=== PATIENT | female | born 1965 | race American Indian/Alaskan Native ===

== ENCOUNTER 2018-02-10 17:20 | Emergency (ER) | payer SELFPAY ==
[2018-02-10] MEDS ORDERED: MOTRIN PO ONE (21:02)
[2018-02-10 21:04] VITALS: BP 133/90
--- NOTE | 2018-02-11 00:48 | Emergency Department Report ---
ED ENT HPI - General Chief complaint: Dental/Oral Stated complaint: HEAD PAIN/TOOTHACHE Time Seen by Provider: 02/11/18 00:43 Source: patient Mode of arrival: Ambulatory Limitations: No Limitations - History of Present Illness Initial comments: 52-year-old [place] female comes in complaining of right side 8 and face pain. Patient states that she thinks she has a toothache. Patient states that this is started Tuesday and progressively gotten worse. Patient reports she does have an appointment with the dentist on February 27. History of a stroke in 2008. She reports that the Tylenol that was given to her triage has not helped with her pain. MD complaint: tooth pain -: days(s) (4) Location: tooth # (2) Severity scale (0 -10): 10 Quality: stabbing, aching Consistency: constant Improves with: none Worsens with: eating Associated Symptoms: gum swelling, toothache - Related Data Previous Rx's Medication Instructions Recorded Last Taken Type Aspirin [Aspirin TAB] 325 mg PO QDAY #30 tablet 12/25/13 Unknown Rx Simvastatin [Zocor TAB] 20 mg PO QHS #30 tablet 12/25/13 Unknown Rx Acyclovir [Zovirax Cap] 200 mg PO 5XD #35 cap 02/09/14 Unknown Rx HYDROcodone/APAP 7.5-325 [[place] 1 each PO Q6HR PRN #20 tablet 02/09/14 Unknown Rx 7.5/325 mg] Clindamycin [Clindamycin CAP] 300 mg PO Q8H 10 Days #30 cap 02/11/18 Unknown Rx Ibuprofen [Motrin 600 MG tab] 600 mg PO Q8H PRN #30 tablet 02/11/18 Unknown Rx traMADol [Ultram 50 MG tab] 50 mg PO Q6HR PRN #12 tablet 02/11/18 Unknown Rx Allergies Allergy/AdvReac Type Severity Reaction Status Date / Time Penicillins Allergy Hives Verified 12/24/13 08:58 ED Dental HPI - General Chief complaint: Dental/Oral Stated complaint: HEAD PAIN/TOOTHACHE Time Seen by Provider: 02/11/18 00:43 Source: patient Mode of arrival: Ambulatory Limitations: No Limitations - Related Data Previous Rx's Medication Instructions Recorded Last Taken Type Aspirin [Aspirin TAB] 325 mg PO QDAY #30 tablet 12/25/13 Unknown Rx Simvastatin [Zocor TAB] 20 mg PO QHS #30 tablet 12/25/13 Unknown Rx Acyclovir [Zovirax Cap] 200 mg PO 5XD #35 cap 02/09/14 Unknown Rx HYDROcodone/APAP 7.5-325 [[place] 1 each PO Q6HR PRN #20 tablet 02/09/14 Unknown Rx 7.5/325 mg] Clindamycin [Clindamycin CAP] 300 mg PO Q8H 10 Days #30 cap 02/11/18 Unknown Rx Ibuprofen [Motrin 600 MG tab] 600 mg PO Q8H PRN #30 tablet 02/11/18 Unknown Rx traMADol [Ultram 50 MG tab] 50 mg PO Q6HR PRN #12 tablet 02/11/18 Unknown Rx Allergies Allergy/AdvReac Type Severity Reaction Status Date / Time Penicillins Allergy Hives Verified 12/24/13 08:58 ED Review of Systems ROS: Stated complaint: HEAD PAIN/TOOTHACHE Other details as noted in HPI Constitutional: denies: chills, fever Eyes: denies: eye pain, eye discharge, vision change ENT: dental pain Respiratory: denies: cough, shortness of breath, wheezing Cardiovascular: as per HPI Endocrine: no symptoms reported ED Past Medical Hx - Past Medical History Hx CVA: Yes (2009 left side) - Surgical History Additional Surgical History: - Social History Smoking Status: Former Smoker Substance Use Type: None - Medications Home Medications: Home Medications Medication Instructions Recorded Confirmed Last Taken Type Aspirin [Aspirin TAB] 325 mg PO QDAY #30 tablet 12/25/13 Unknown Rx Simvastatin [Zocor TAB] 20 mg PO QHS #30 tablet 12/25/13 Unknown Rx Acyclovir [Zovirax Cap] 200 mg PO 5XD #35 cap 02/09/14 Unknown Rx HYDROcodone/APAP 7.5-325 [[place] 1 each PO Q6HR PRN #20 tablet 02/09/14 Unknown Rx 7.5/325 mg] Clindamycin [Clindamycin CAP] 300 mg PO Q8H 10 Days #30 cap 02/11/18 Unknown Rx Ibuprofen [Motrin 600 MG tab] 600 mg PO Q8H PRN #30 tablet 02/11/18 Unknown Rx traMADol [Ultram 50 MG tab] 50 mg PO Q6HR PRN #12 tablet 02/11/18 Unknown Rx ED Physical Exam - General Limitations: No Limitations General appearance: alert, in no apparent distress - Head Head exam: Present: atraumatic, normocephalic - Eye Eye exam: Present: EOMI - ENT ENT exam: Present: other (swelling noted to the right cheek) - Expanded ENT Exam Expanded Teeth exam: Present: dental tenderness # (2), gingival enlargement Throat exam: Positive: normal inspection - Neck Neck exam: Present: normal inspection ED Course Vital Signs 02/10/18 02/10/18 17:36 21:03 Temperature 98.8 F Pulse Rate 107 H 81 Respiratory 16 18 Rate Blood Pressure 144/95 Blood Pressure 133/90 [Left] O2 Sat by Pulse 100 100 Oximetry ED Medical Decision Making - Medical Decision Making Patient has been evaluated by this provider fast track. I will place patient on clindamycin 300 mg 3 times a day or 10 days. Please patient on ibuprofen as well as a few tramadol pain management. Patient is to keep her appointment with her dentist on 02/27/2018. Critical care attestation.: If time is entered above; I have spent that time in minutes in the direct care of this critically ill patient, excluding procedure time. ED Disposition Clinical Impression: Dental abscess Disposition: DC-01 TO HOME OR SELFCARE Is pt being admited?: No Does the pt Need Aspirin: No Condition: Stable Instructions: Dental Abscess (ED) Additional Instructions: Complete antibiotics as prescribed. Take pain medication as needed. Please keep your appointment with her dentist. Prescriptions: Clindamycin [Clindamycin CAP] 300 mg PO Q8H 10 Days #30 cap Ibuprofen [Motrin 600 MG tab] 600 mg PO Q8H PRN #30 tablet PRN Reason: Pain traMADol [Ultram 50 MG tab] 50 mg PO Q6HR PRN #12 tablet PRN Reason: Pain Referrals: PRIMARY CARE, [Primary Care Provider] - 3-5 Days Forms: Work/School Release Form(ED)
== END 2018-02-11 01:14 | disposition home or self-care (01) ==
LOC: ED 17:20
DX: K04.7 Periapical abscess without sinus (principal); Z88.0 Allergy status to penicillin; Z87.891 Personal history of nicotine dependence; Z86.73 Personal history of transient ischemic attack (TIA), and cerebral infarction without residual deficits
CPT/HCPCS: 99282

== ENCOUNTER 2019-06-27 13:07 | Emergency (ER) | payer SELFPAY ==
[2019-06-27 13:28] VITALS: BP 175/99
--- NOTE | 2019-06-27 13:37 | Emergency Department Report ---
- General Chief complaint: Skin/Abscess/Foreign Body Stated complaint: POSS SPIDER BITE Time Seen by Provider: 06/27/19 13:31 Source: patient Mode of arrival: Ambulatory Limitations: No Limitations - History of Present Illness Initial comments: This is a 53-year-old female nontoxic well in appearance with no signs of distress presents to the ED with complaint of left thigh redness and pain. Stated is not sure what bite him. Patient denies any swelling, pus, or drainage. Patient denies any other symptoms. Denies any fever, chills, headache, nausea, vomiting, chest pain or SOB. Denies any other complaints. Allergies include PCN. MD complaint: insect bite/sting -: days(s) Location: LLE Severity: mild Severity scale (0 -10): 8 Quality: aching Consistency: constant Improves with: none Worsens with: none Associated symptoms: denies other symptoms - Related Data Previous Rx's Medication Instructions Recorded Last Taken Type Aspirin 325 mg PO QDAY #30 tablet 12/25/13 Unknown Rx Simvastatin (Nf) [Zocor TAB] 20 mg PO QHS #30 tablet 12/25/13 Unknown Rx Acyclovir [Zovirax Cap] 200 mg PO 5XD #35 cap 02/09/14 Unknown Rx HYDROcodone/APAP 7.5-325 [[place] 1 each PO Q6HR PRN #20 tablet 02/09/14 Unknown Rx 7.5/325 mg] Clindamycin [Clindamycin CAP] 300 mg PO Q8H 10 Days #30 cap 02/11/18 Unknown Rx Ibuprofen [Motrin 600 MG tab] 600 mg PO Q8H PRN #30 tablet 02/11/18 Unknown Rx traMADoL [Ultram 50 MG tab] 50 mg PO Q6HR PRN #12 tablet 02/11/18 Unknown Rx Clindamycin [Clindamycin CAP] 300 mg PO Q8H #21 cap 06/27/19 Unknown Rx Allergies Allergy/AdvReac Type Severity Reaction Status Date / Time Penicillins Allergy Hives Verified 12/24/13 08:58 Abscess Boil HPI - HPI Chief Complaint: Skin/Abscess/Foreign Body Stated Complaint: POSS SPIDER BITE Time Seen by Provider: 06/27/19 13:31 Home Medications: Previous Rx's Medication Instructions Recorded Last Taken Type Aspirin 325 mg PO QDAY #30 tablet 12/25/13 Unknown Rx Simvastatin (Nf) [Zocor TAB] 20 mg PO QHS #30 tablet 12/25/13 Unknown Rx Acyclovir [Zovirax Cap] 200 mg PO 5XD #35 cap 02/09/14 Unknown Rx HYDROcodone/APAP 7.5-325 [[place] 1 each PO Q6HR PRN #20 tablet 02/09/14 Unknown Rx 7.5/325 mg] Clindamycin [Clindamycin CAP] 300 mg PO Q8H 10 Days #30 cap 02/11/18 Unknown Rx Ibuprofen [Motrin 600 MG tab] 600 mg PO Q8H PRN #30 tablet 02/11/18 Unknown Rx traMADoL [Ultram 50 MG tab] 50 mg PO Q6HR PRN #12 tablet 02/11/18 Unknown Rx Clindamycin [Clindamycin CAP] 300 mg PO Q8H #21 cap 06/27/19 Unknown Rx Allergies/Adverse Reactions: Allergies Allergy/AdvReac Type Severity Reaction Status Date / Time Penicillins Allergy Hives Verified 12/24/13 08:58 ED Review of Systems ROS: Stated complaint: POSS SPIDER BITE Other details as noted in HPI Constitutional: denies: chills, fever Eyes: denies: eye pain, eye discharge, vision change ENT: denies: ear pain, throat pain Respiratory: denies: cough, shortness of breath, wheezing Cardiovascular: denies: chest pain, palpitations Endocrine: no symptoms reported Gastrointestinal: denies: abdominal pain, nausea, diarrhea Genitourinary: denies: urgency, dysuria, discharge Musculoskeletal: denies: back pain, joint swelling, arthralgia Skin: denies: rash, lesions Neurological: denies: headache, weakness, paresthesias Psychiatric: denies: anxiety, depression Hematological/Lymphatic: denies: easy bleeding, easy bruising ED Past Medical Hx - Past Medical History Previous Medical History?: Yes Hx CVA: Yes (2009 left side) - Surgical History Past Surgical History?: Yes Additional Surgical History: - Social History Smoking Status: Never Smoker Substance Use Type: None - Medications Home Medications: Home Medications Medication Instructions Recorded Confirmed Last Taken Type Aspirin 325 mg PO QDAY #30 tablet 12/25/13 Unknown Rx Simvastatin (Nf) [Zocor TAB] 20 mg PO QHS #30 tablet 12/25/13 Unknown Rx Acyclovir [Zovirax Cap] 200 mg PO 5XD #35 cap 02/09/14 Unknown Rx HYDROcodone/APAP 7.5-325 [[place] 1 each PO Q6HR PRN #20 tablet 02/09/14 Unknown Rx 7.5/325 mg] Clindamycin [Clindamycin CAP] 300 mg PO Q8H 10 Days #30 cap 02/11/18 Unknown Rx Ibuprofen [Motrin 600 MG tab] 600 mg PO Q8H PRN #30 tablet 02/11/18 Unknown Rx traMADoL [Ultram 50 MG tab] 50 mg PO Q6HR PRN #12 tablet 02/11/18 Unknown Rx Clindamycin [Clindamycin CAP] 300 mg PO Q8H #21 cap 06/27/19 Unknown Rx ED Physical Exam - General Limitations: No Limitations General appearance: alert, in no apparent distress - Head Head exam: Present: atraumatic, normocephalic - Extremities Exam Extremities exam: Present: normal inspection, full ROM, tenderness, normal capillary refill. Absent: joint swelling - Expanded Lower Extremity Exam Left Hip exam: Present: normal inspection, full ROM. Absent: tenderness, swelling, abrasion Upper Leg exam: Present: normal inspection, full ROM, tenderness, swelling, erythema. Absent: abrasion, laceration, ecchymosis, deformity, crepidus, dislocation Knee exam: Present: normal inspection, full ROM. Absent: tenderness, swelling Lower Leg exam: Present: normal inspection, full ROM. Absent: tenderness, swelling, abrasion, laceration, ecchymosis, deformity, crepidus, dislocation, erythema, palpable cord, Eulalia's sign Ankle exam: Present: normal inspection, full ROM. Absent: tenderness, swelling Foot/Toe exam: Present: normal inspection, full ROM. Absent: tenderness, sw elling, abrasion Neuro vascular tendon exam: Present: no vascular compromise Gait: Positive: observed and limited by pain 1 - cellulitis - Back Exam Back exam: Present: normal inspection, full ROM - Neurological Exam Neurological exam: Present: alert, oriented X3, normal gait - Psychiatric Psychiatric exam: Present: normal affect, normal mood - Skin Skin exam: Present: warm, dry, intact, normal color. Absent: rash ED Course Vital Signs 06/27/19 13:26 Temperature 98 F Pulse Rate 82 Respiratory 18 Rate Blood Pressure 175/99 O2 Sat by Pulse 100 Oximetry - Reevaluation(s) Reevaluation #1: 06/27/19 13:35 Patient is speaking in full sentences with no signs of distress noted. ED Medical Decision Making - Medical Decision Making This is a 53-year-old female that presents with cellulitis. Patient is stable and was examined by me. The area of redness and cellulitis has been outlined with a permanent marker. Patient will be discharged with Clinda. Patient was instructed to Follow-up with a primary care doctor in 3-5 days or if symptoms worsen and continue return to emergency room as soon as possible. At time of discharge, the patient does not seem toxic or ill in appearance. No acute signs of distress noted. Patient agrees to discharge treatment plan of care. No further questions noted by the patient. Critical care attestation.: If time is entered above; I have spent that time in minutes in the direct care of this critically ill patient, excluding procedure time. ED Disposition Clinical Impression: Cellulitis Qualifiers: Site of cellulitis: extremity Site of cellulitis of extremity: lower extremity Laterality: left Qualified Code(s): L03.116 - Cellulitis of left lower limb Disposition: DC-01 TO HOME OR SELFCARE Is pt being admited?: No Does the pt Need Aspirin: No Condition: Stable Instructions: Cellulitis (ED) Additional Instructions: Follow-up with a primary care doctor in 3-5 days or if symptoms worsen and continue return to emergency room as soon as possible. Prescriptions: Clindamycin [Clindamycin CAP] 300 mg PO Q8H #21 cap Referrals: PRIMARY CAREMD [Referring] - 3-5 Days UMESH TELLEZ MD [Staff Physician] - 3-5 Days [facility] [Outside] - 3-[address] [facility] [Outside] - 3-5 Days Forms: Work/School Release Form(ED)
== END 2019-06-27 13:37 | disposition home or self-care (01) ==
LOC: ED 13:07
DX: L03.116 Cellulitis of left lower limb (principal); Z86.73 Personal history of transient ischemic attack (TIA), and cerebral infarction without residual deficits
CPT/HCPCS: 99282